=== PATIENT | male | born 1985 | race Caucasian/White ===

== ENCOUNTER 2024-02-15 12:39 | Outpatient (REF) | payer BC, SELFPAY ==
--- NOTE | ~2024-02-15 | MR_ITS ---
EXAMINATION: MR CERVICAL SPINE WITHOUT CONTRAST CLINICAL INFORMATION: Cervicalgia right shoulder and arm pain, numbness, tingling COMPARISON: None TECHNIQUE: MRI of the cervical spine was obtained using routine sequences without contrast. FINDINGS: Upper cervical straightening. No significant spondylolisthesis. No suspicious marrow signal or focal osseous lesion. No significant marrow edema. The vertebral body heights are maintained. The intervertebral discs are of normal height and signal. The cervical spinal cord is normal in caliber and signal. Limited evaluation of the soft tissues of the neck without demonstrated abnormalities. The flow voids of the major cervical vessels are maintained. Normal appearance of the cervicomedullary junction and visualized posterior fossa SPINAL LEVELS: C2-C3: No significant spinal canal or neuroforaminal narrowing C3-C4: No significant spinal canal or neuroforaminal narrowing C4-C5: No significant spinal canal or neuroforaminal narrowing C5-C6: No significant spinal canal or neuroforaminal narrowing C6-C7: Shallow disc bulge with superimposed right foraminal disc moderately narrows the right neural foramen and impinges the exiting right C7 nerve root. No significant spinal canal stenosis. C7-T1: No significant spinal canal or neuroforaminal narrowing MR/MR cervical spine wo con IMPRESSION: 1. At C6-C7, a right foraminal disc protrusion moderately narrows the right neural foramen and impinges the exiting right C7 nerve root. 2. Otherwise unremarkable examination. Electronically signed by: Elías Sterling MD 02/15/2024 06:12 PM EDT
== END 2024-02-15 12:40 | disposition home or self-care (01) ==
LOC: HO.MRI 12:39
PROVIDERS: PCP Family Medicine; Visit Provider Family Medicine
DX: M54.2 Cervicalgia (principal)
CPT/HCPCS: 72141